=== PATIENT | male | born 1930 | race Caucasian/White ===

== ENCOUNTER 2017-01-21 08:21 | Outpatient (CLI) | payer MEDICARE, OTHER ==
[2017-01-21 13:04] LABS: Cardiac Risk 5.1 (Less than 4.5)
== END 2017-01-21 08:22 ==
LOC: NAVSJIPCSP 08:21
PROVIDERS: ATTEND Internal Medicine
DX: E78.5 Hyperlipidemia, unspecified (principal)
CPT/HCPCS: 36415; 80061

== ENCOUNTER 2017-04-16 08:20 | Outpatient (CLI) | payer MEDICARE, OTHER ==
[2017-04-16 12:45] LABS: Anion Gap 17 mmol/L (10-20); BUN (Urea Nitrogen) 27 mg/dL (8.4-25.7); Calc. Creatinine Clearance 0 mL/min (70-130); Calcium 9.1 mg/dL (7.8-10.44); Carbon Dioxide 22 mmol/L (23-31); Chloride 106 mmol/L (98-107); Estimated GFR-MDRD 53; Glucose 106 mg/dL (83-110); Potassium 4.7 mmol/L (3.5-5.1); Sodium 140 mmol/L (136-145)
[2017-04-16 14:08] LABS: Hemoglobin 12.3 g/dL (14.0-18.0); Mean Corpuscular HGB CONC 32.6 g/dL (32.0-36.0); Mean Corpuscular Hemoglobin 29.7 pg (27.0-31.0); Mean Platelet Volume 6.8 fL (7.4-10.4); Platelet Count 178 thou/uL (130-400); RBC Distribution Width 13.6 % (11.5-14.5); Red Blood Cell (RBC) Count 4.15 mill/uL (4.70-6.10); White Blood Cell (WBC) Count 8.7 thou/uL (4.8-10.8)
[2017-04-16 14:09] LABS: Lymphocytes 58 % (21-51); MDiff Complete? YES; Monocytes 5 % (0-10); Neutrophil 37 % (42-75); PLT Morphology Comment Appears Adequate
== END 2017-04-16 08:21 | disposition home or self-care (01) ==
LOC: NAVSJIPCSP 08:20
PROVIDERS: ATTEND Internal Medicine
DX: C61 Malignant neoplasm of prostate (principal); R97.20 Elevated prostate specific antigen [PSA]; Z79.899 Other long term (current) drug therapy
CPT/HCPCS: 36415; 80048; 84153; 85025

== ENCOUNTER → 2020-11-23 | Day surgery (SDC) | payer MEDICARE ==
[~2020-11-23] MED LIST: Acetaminophen 500 MG TAB PO SCH; BAMLANIVIMAB 700 MG in Sodium Chloride 0.9% 250 ML 250 ML IVPB SCH; BAMLANIVIMAB 700 MG/20 ML VIAL IVPB ONE; Sodium Chloride 0.9% 250 ML 250 ML ONE; diphenhydrAMINE 25 MG CAP ONE; diphenhydrAMINE 50 MG/ML VIAL IVP SCH; diphenhydrAMINE 50 MG/ML VIAL ONE
[2020-11-23 18:12] VITALS: BP 155/74; TEMP 99.2
== END ==
LOC: NAV ER/OP 15:32
PROVIDERS: ATTEND Internal Medicine
DX: U07.1 COVID-19 (principal); Z88.5 Allergy status to narcotic agent; Z88.8 Allergy status to other drugs, medicaments and biological substances
CPT/HCPCS: J1200; J7050; Q0163; Q0239